=== PATIENT | female | born 1930 | race Caucasian/White ===

== ENCOUNTER → 2017-12-09 | Outpatient (CLI) | payer MEDICARE, OTHER ==
[2017-12-09] MEDS: SOD CHLORIDE 0.9% 100 ML (15:59)
[2017-12-09] MEDS: IOHEXOL 300MG/ML 150 ML BTL (15:59)
== END | disposition home or self-care (01) ==
LOC: RAD 08:00
DX: J98.11 Atelectasis (principal); Q61.02 Congenital multiple renal cysts; M41.9 Scoliosis, unspecified; M51.36 Other intervertebral disc degeneration, lumbar region; R10.9 Unspecified abdominal pain; Z90.710 Acquired absence of both cervix and uterus
CPT/HCPCS: 74177